=== PATIENT | female | born 1970 | race Caucasian/White ===

== ENCOUNTER 2024-04-21 03:49 | Outpatient (CLI) | payer MEDICAID, SELFPAY | END 2024-04-21 03:50 | disposition home or self-care (01) | LOC: AMB 04-28 00:09 | PROVIDERS: Visit Provider Internal Medicine | DX: M79.604 Pain in right leg (principal); S81.801A Unspecified open wound, right lower leg, initial encounter | CPT/HCPCS: A0425; A0434 ==